=== PATIENT | female | born 1965 | race Caucasian/White ===

== ENCOUNTER → 2016-04-14 | Outpatient (CLI) | payer OTHER ==
[~2016-04-14] MED LIST: CALC600T34 PO; COZA25TA PO; DRIS50002 PO; LEVO100T5 PO; MULTTAB67 PO
== END ==
LOC: PLAB 12:50
PROVIDERS: ATTEND Family Medicine
DX: E55.9 Vitamin D deficiency, unspecified (principal)
CPT/HCPCS: 82306

== ENCOUNTER → 2016-11-22 | Outpatient (CLI) | payer OTHER ==
[~2016-11-22] MED LIST changes: +CALTCHW5 PO; +VITA100018 PO
[2016-11-22 16:21] LABS: HDL CHOLESTEROL 47.2 MG/DL (40.0-60.0); LDL CHOLESTEROL 78 MG/DL (0-99)
== END ==
LOC: PLAB 13:33
PROVIDERS: ATTEND Family Medicine
DX: E03.9 Hypothyroidism, unspecified (principal); E55.9 Vitamin D deficiency, unspecified
CPT/HCPCS: 80061; 82306; 84443

== ENCOUNTER → 2017-02-16 | Outpatient (CLI) | payer OTHER ==
[~2017-02-16] MED LIST changes: -CALC600T34 PO; -DRIS50002 PO; +LEVO50TA4 PO; -MULTTAB67 PO
== END ==
LOC: PLAB 15:43
PROVIDERS: ATTEND Family Medicine
DX: E03.9 Hypothyroidism, unspecified (principal)
CPT/HCPCS: 36415; 84443

== ENCOUNTER → 2017-05-10 | Outpatient (CLI) | payer OTHER ==
[~2017-05-10] MED LIST changes: +AZIT250T3 PO; +BROMSYP PO; -LEVO100T5 PO; +MEDR4PAK PO; +VENTAER INH
== END ==
LOC: PLAB 14:22
PROVIDERS: ATTEND Family Medicine
DX: E03.9 Hypothyroidism, unspecified (principal)
CPT/HCPCS: 36415; 84443

== ENCOUNTER → 2017-06-20 | Outpatient (CLI) | payer OTHER ==
[~2017-06-20] VITALS: Ht 167.6 cm; Wt 97.7 kg
[~2017-06-20] MED LIST changes: +CHLORHEXIDINE GLUCONATE 2 % 1 PACK (2 CLOTHS) TOPICAL PRN; +INSULIN HUMAN REGULAR 1,000 UNITS/10 ML VIAL SQ PRN; +LACTATED RINGER'S 1000 ML IV PRN; +LEVO25TA4 PO; +METOPROLOL TARTRATE 25 MG TAB PO PRN; +POVIDONE IODINE 5% (ANTISEPSIS KIT) 4 APPLICATIONS EACH NARE PRN; +SODIUM CHLORID 0.9% 500 ML IV PRN
--- NOTE | 2017-06-20 14:03 | GIPROC ---
[facility] [address] [facility]. [facility], [id number] COLONOSCOPY PROCEDURE REPORT EXAM DATE: 06/20/2017 PATIENT NAME: Leanna Brown MR #: [id number] BIRTHDATE: 1965 ENDOSCOPIST: Adri King MD ORDER #: [id number] RUM PROCESSING OPERATOR: Mal Deleon and Nyla Jansen STATUS: outpatient INDICATIONS: The patient is a 51 yr old female here for a colonoscopy due to Screening PROCEDURE PERFORMED: Total Colonoscopy MEDICATIONS: See Anesthesia Record ESTIMATED BLOOD LOSS: None CONSENT: The patient understands the risks and benefits of the procedure and understands that these risks include, but are not limited to: sedation, allergic reaction, infection, perforation and/or bleeding. Alternative means of evaluation and treatment include, among others: physical exam, x-rays, and/or surgical intervention. The patient elects to proceed with this endoscopic procedure. DESCRIPTION OF PROCEDURE: checked for proper function. Hand hygiene and appropriate measures for infection prevention was taken. After the risks, benefits and alternatives of the procedure were thoroughly explained, Informed consent was verified, confirmed and timeout was successfully executed by the treatment team. A digital exam was performed. The endoscope was introduced through the anus and advanced to the cecum, which was identified by the appendiceal orifice, tri-radiate valve, and ileocecal valve. The prep quality was good. The instrument was then slowly withdrawn as the colon was fully examined. There were no mucosal abnormalities noted with the cecum, ascending colon, transverse colon, descending colon, sigmoid, or rectum. The scope was then completely withdrawn from the patient and the procedure terminated. ADVERSE EVENTS: There were no complications. WITHDRAWL TIME: 6 minutes DEGREE OF DIFFICULTY: IMPRESSIONS: Normal Colon RECOMMENDATIONS: Repeat 10 years PATIENT CONDITION: Stable DISPOSITION: Home RECALL: Repeat colonosocpy Adri King MD eSigned: Adri King MD 06/20/2017 2:03 PM cc: Dr. Susan Beard PATIENT NAME: Leanna Brown MR#: [id number]
[2017-06-20 14:21] VITALS: BP 112/74; PULSE 66; RESP 18; TEMP 98.5; O2SAT 97
--- NOTE | 2017-06-21 | EKG ---
Date Performed: 06/20/2017 Time Performed: 11:52:00 PTAGE: 51 years EKG: Sinus rhythm WITH SHORT OK INTERVAL LOW QRS VOLTAGE IN PRECORDIAL LEADS POSSIBLE ANTERIOR MYOCARDIAL INFARCTION , PROBABLY OLD BORDERLINE ECG NO PREVIOUS TRACING DOCTOR: Lore Del Cid Interpretating Date/Time 06/20/2017 23:57:11
== END ==
LOC: HSDC 11:34
PROVIDERS: ATTEND Colon & Rectal Surgery
DX: Z12.11 Encounter for screening for malignant neoplasm of colon (principal); R94.31 Abnormal electrocardiogram [ECG] [EKG]
CPT/HCPCS: 00812; 45378; 93005; J7120

== ENCOUNTER → 2017-09-21 | Outpatient (CLI) | payer OTHER ==
[~2017-09-21] MED LIST changes: -AZIT250T3 PO; -BROMSYP PO; -CHLORHEXIDINE GLUCONATE 2 % 1 PACK (2 CLOTHS) TOPICAL PRN; -INSULIN HUMAN REGULAR 1,000 UNITS/10 ML VIAL SQ PRN; -LACTATED RINGER'S 1000 ML IV PRN; -MEDR4PAK PO; -METOPROLOL TARTRATE 25 MG TAB PO PRN; -POVIDONE IODINE 5% (ANTISEPSIS KIT) 4 APPLICATIONS EACH NARE PRN; -SODIUM CHLORID 0.9% 500 ML IV PRN; -VENTAER INH; -VITA100018 PO
== END ==
LOC: PLAB 15:15
PROVIDERS: ATTEND Family Medicine
DX: E03.9 Hypothyroidism, unspecified (principal)
CPT/HCPCS: 36415; 84443